=== PATIENT | female | born 1935 | race Caucasian/White ===

== ENCOUNTER 2025-03-18 05:20 | Day surgery (SDC) | payer OTHER ==
[2025-03-18] MEDS ORDERED: ACETAMINOPHEN 500 MG TABLET (FP) PO PRN (09:19)
[2025-03-18 15:59] VITALS: BMI 23.8
[2025-03-18] MEDS ORDERED: BUPIVACAINE HCL/PF 0.75% 10 ML VIAL ONE (16:09)
[2025-03-18 17:17] VITALS: BP 129/58; PULSE 78; RESP 16; TEMP 97.5
== END 2025-03-18 17:00 | disposition home or self-care (01) ==
LOC: JASU-SURG 05:20
PROVIDERS: ATTEND Pain Medicine Pain Medicine
PROC: 3E0T3BZ Introduction of Anesthetic Agent into Peripheral Nerves and Plexi, Percutaneous Approach (ICD-10-PCS; principal; 2025-03-18 16:45)
DX: M47.816 Spondylosis without myelopathy or radiculopathy, lumbar region (principal)
CPT/HCPCS: 76000-TC-FY